=== PATIENT | male | born 1995 | race Caucasian/White ===

== ENCOUNTER 2016-11-06 16:15 | Emergency (ER) | payer MEDICAID, OTHER ==
[~2016-11-06] VITALS: Ht 170.2 cm; Wt 98.0 kg
[2016-11-06 16:15] VITALS: BP 115/70
== END 2016-11-06 16:39 | disposition home or self-care (01) ==
LOC: ER 16:18
DX: R05 Cough (principal); Z88.1 Allergy status to other antibiotic agents
CPT/HCPCS: 99283; A4606; Z7610

== ENCOUNTER 2017-09-06 15:59 | Emergency (ER) | payer MEDICAID, OTHER ==
[~2017-09-06] VITALS: Ht 170.2 cm; Wt 104.3 kg
[2017-09-06 16:35] VITALS: BP 112/63
== END 2017-09-06 17:16 | disposition home or self-care (01) ==
LOC: ER 16:02
DX: J11.1 Influenza due to unidentified influenza virus with other respiratory manifestations (principal); F10.10 Alcohol abuse, uncomplicated; Z88.1 Allergy status to other antibiotic agents
CPT/HCPCS: 99281; A4606; Z7610; Z7502

== ENCOUNTER 2017-10-11 08:02 | Emergency (ER) | payer OTHER ==
[~2017-10-11] VITALS: Ht 170.2 cm; Wt 97.5 kg
[2017-10-11 08:06] VITALS: BP 128/98
== END 2017-10-11 09:15 | disposition home or self-care (01) ==
LOC: ER 08:03
DX: R06.02 Shortness of breath (principal); F41.9 Anxiety disorder, unspecified; F10.10 Alcohol abuse, uncomplicated; Z88.1 Allergy status to other antibiotic agents
CPT/HCPCS: 71045; 99284; A4606; Z7610

== ENCOUNTER 2018-02-22 15:09 | Emergency (ER) | payer OTHER ==
[~2018-02-22] VITALS: Ht 165.1 cm; Wt 83.9 kg
[2018-02-22 15:27] VITALS: BP 122/57
[2018-02-22] MEDS ORDERED: ONDANSETRON 4 MG TAB.RAPDIS ONE (15:44)
[2018-02-22] MEDS ORDERED: ONDANSETRON 4 MG TAB.RAPDIS SL ONE (16:00)
== END 2018-02-22 15:50 | disposition home or self-care (01) ==
LOC: ER 15:12
DX: R11.2 Nausea with vomiting, unspecified (principal); R19.7 Diarrhea, unspecified; Z88.1 Allergy status to other antibiotic agents
CPT/HCPCS: 99283; A4606; Q0162; Z7610

== ENCOUNTER 2018-03-13 22:35 | Emergency (ER) | payer OTHER ==
[~2018-03-13] VITALS: Ht 172.7 cm; Wt 99.8 kg
[2018-03-13 22:39] VITALS: BP 142/89
== END 2018-03-13 23:04 | disposition home or self-care (01) ==
LOC: ER 22:39
DX: S39.82XA Other specified injuries of lower back, initial encounter (principal); Z88.1 Allergy status to other antibiotic agents; W14.XXXA Fall from tree, initial encounter; Y93.89 Activity, other specified; Y92.89 Other specified places as the place of occurrence of the external cause; Y99.8 Other external cause status
CPT/HCPCS: 99282; A4606; Z7610

== ENCOUNTER 2018-08-05 12:12 | Emergency (ER) | payer OTHER ==
[~2018-08-05] VITALS: Ht 167.6 cm; Wt 99.8 kg
--- NOTE | 2018-08-05 12:12 | NUR ---
BIB SELF, WITH C/O NAUSEA AND VOMITING X LAST NIGHT, ALSO C/O GENERALIZED BODYACHES. TO ER BED 7, VSS, AWAITING MD ROJAS
--- NOTE | 2018-08-05 12:45 | NUR ---
NOT ABLE TO PROVIDE URINE SPECIMEN AT THIS TIME
[2018-08-05] MEDS ORDERED: ONDANSETRON HCL/PF 4 MG/2 ML VIAL ONE (12:47)
[2018-08-05] MEDS ORDERED: ONDANSETRON HCL/PF 4 MG/2 ML VIAL IVP ONE (13:00)
[2018-08-05] MEDS ORDERED: IV NS 0.9% 1,000 ML BAG IV ONE ×2 (13:00→14:00)
[2018-08-05 13:11] LABS: BASOPHILS % (AUTO) 0.2 % (0.0-2.0); EOSINOPHILS % (AUTO) 0.6 % (0.0-6.0); HEMATOCRIT 49 % (39-51); HEMOGLOBIN 16.8 g/dL (13.5-17.5); LYMPHOCYTES # (AUTO) 0.4 /CMM (0.8-4.8); LYMPHOCYTES % (AUTO) 3.6 % (20.0-44.0); MEAN CORPUSCULAR HGB CONC 34 g/dl (31.0-36.0); MEAN CORPUSCULAR VOLUME 91 fL (80-96); MONOCYTES # (AUTO) 0.5 /CMM (0.1-1.30); MONOCYTES % (AUTO) 5.1 % (2.0-12.0); NEUTROPHILS # (AUTO) 9.4 /CMM (1.8-8.9); NEUTROPHILS % (AUTO) 90.5 % (43.0-81.0); PLATELET COUNT (AUTO) 224 /CMM (150-450); RED BLOOD CELL COUNT(AUTO) 5.44 MIL/uL (4.5-6.0); WHITE BLOOD COUNT (AUTO) 10.4 K/uL (4.3-11.0)
[2018-08-05 13:19] LABS: CALCIUM, SERUM 9.2 mg/dL (8.5-10.1); POTASSIUM 3.7 mmol/L (3.5-5.1)
[2018-08-05 13:25] LABS: ALBUMIN 4.6 g/dL (3.4-5.0); BILIRUBIN,DIRECT 0.2 mg/dL (0.0-0.2)
[2018-08-05 13:36] LABS: TOTAL PROTEIN, SERUM 8.4 g/dL (6.4-8.2)
--- NOTE | 2018-08-05 13:38 | NUR ---
PT ABLE TO DRINK WATER W/O VOMITING, AWARE
--- NOTE | 2018-08-05 14:45 | NUR ---
URINE SAMPLE SUBMITTED TO LAB
[2018-08-05 15:31] LABS: APPEARANCE,URINE CLEAR (CLEAR); BILIRUBIN,URINE NEGATIVE (NEGATIVE); BLOOD, URINE NEGATIVE Ery/uL (NEGATIVE); COLOR,URINE YELLOW (YELLOW); KETONES,URINE NEGATIVE (NEGATIVE); LEUKOCYTE ESTERASE ,URINE NEGATIVE (NEGATIVE); NITRITE, URINE NEGATIVE (NEGATIVE); PH,URINE 7.5 (5.0-8.0); PROTEIN,URINE NEGATIVE (NEGATIVE); UGLUCOSE NEGATIVE (NEGATIVE); UROBILINOGEN,URINE 0.2 EU/dL (0.2)
[2018-08-05 15:45] VITALS: BP 132/86
--- NOTE | 2018-08-05 15:45 | NUR ---
Patient discharged to home in stable condition. Written and verbal after care instructions given. Patient verbalizes understanding of instruction.IV removed. Catheter intact and site benign. Pressure and 4x4 applied to site. No bleeding noted.
== END 2018-08-05 15:47 | disposition home or self-care (01) ==
LOC: ER 12:13
DX: E86.0 Dehydration (principal); R11.2 Nausea with vomiting, unspecified; R19.7 Diarrhea, unspecified; Z88.1 Allergy status to other antibiotic agents
CPT/HCPCS: 36415; 80048; 80076; 81001; 83690; 85025; 96361; 96374; 99283; A4606; J2405; J7030 ×3; Z7610; 81000-TC

== ENCOUNTER 2018-12-08 13:27 | Emergency (ER) | payer OTHER ==
[~2018-12-08] VITALS: Ht 167.6 cm; Wt 65.8 kg
[2018-12-08] MEDS ORDERED: DIPHENHYDRAMINE HCL 12.5 MG/5 ML UDC PO ONE (14:00)
[2018-12-08 14:12] VITALS: BP 151/77
== END 2018-12-08 14:19 | disposition home or self-care (01) ==
LOC: ER 13:27
DX: T14.8XXA Other injury of unspecified body region, initial encounter (principal); Z88.1 Allergy status to other antibiotic agents; W57.XXXA Bitten or stung by nonvenomous insect and other nonvenomous arthropods, initial encounter; Y93.89 Activity, other specified; Y92.89 Other specified places as the place of occurrence of the external cause; Y99.8 Other external cause status
CPT/HCPCS: 99282; Q0163

== ENCOUNTER 2019-09-05 17:46 | Emergency (ER) | payer OTHER ==
[~2019-09-05] VITALS: Ht 170.2 cm; Wt 99.8 kg
--- NOTE | 2019-09-05 18:15 | NUR ---
BIB GF C/O ABDOMINAL PAIN, NAUSEA AND VOMITING X 3 DAYS. TO ER BED 11, HOOKED TO MONITOR, CHANGED TO HOSP GOWN, PROVIDED W WARM BLANKET, AOx4, BREATHING EVEN AND UNLABOREDM, AWAITING MD ROJAS.
--- NOTE | 2019-09-05 18:32 | NUR ---
DR ANDERSON AT BEDSIDE
[2019-09-05 18:43] LABS: BASOPHILS % (AUTO) 0.5 % (0.0-2.0); EOSINOPHILS % (AUTO) 2.5 % (0.0-6.0); HEMATOCRIT 53 % (39-51); HEMOGLOBIN 18.3 g/dL (13.5-17.5); LYMPHOCYTES # (AUTO) 1.7 /CMM (0.8-4.8); LYMPHOCYTES % (AUTO) 30.5 % (20.0-44.0); MEAN CORPUSCULAR HGB CONC 35 g/dl (31.0-36.0); MEAN CORPUSCULAR VOLUME 92 fL (80-96); NEUTROPHILS # (AUTO) 2.6 /CMM (1.8-8.9); NEUTROPHILS % (AUTO) 48.5 % (43.0-81.0); PLATELET COUNT (AUTO) 193 /CMM (150-450); RED BLOOD CELL COUNT(AUTO) 5.77 MIL/uL (4.5-6.0); WHITE BLOOD COUNT (AUTO) 5.4 K/uL (4.3-11.0)
[2019-09-05] MEDS ORDERED: ONDANSETRON HCL/PF 4 MG/2 ML VIAL ONE (18:49)
[2019-09-05] MEDS ORDERED: FAMOTIDINE/PF INJ 20 MG/2 ML VIAL IV ONE ×2 (18:49→19:00)
[2019-09-05 18:59] LABS: ALBUMIN 4.6 g/dL (3.4-5.0); BILIRUBIN,DIRECT 0.1 mg/dL (0.0-0.2); BILIRUBIN,TOTAL 0.7 mg/dL (0.2-1.0); CALCIUM, SERUM 9.9 mg/dL (8.5-10.1); CREATININE 1.2 mg/dL (0.6-1.3); POTASSIUM 3.8 mmol/L (3.5-5.1); TOTAL PROTEIN, SERUM 9.3 g/dL (6.4-8.2)
[2019-09-05] MEDS ORDERED: ONDANSETRON HCL/PF 4 MG/2 ML VIAL IVP ONE (19:00)
[2019-09-05] MEDS ORDERED: IV NS 0.9% 1,000 ML BAG IV ONE (19:00)
--- NOTE | 2019-09-05 19:34 | NUR ---
REPORT GIVEN TO KATHRYN AGUAYO FOR LOI
--- NOTE | 2019-09-05 19:35 | NUR ---
Patient discharged to home in stable condition. Written and verbal after care instructions given. Patient verbalizes understanding of instruction.IV removed. Catheter intact and site benign. Pressure and 4x4 applied to site. No bleeding noted.Pt ambulatory with a steady gait
[2019-09-05 19:36] VITALS: BP 124/67
[2019-09-05 21:48] LABS: BAND % (MANUAL) 3 % (0.0-5.0); EOSINOPHILS % (MANUAL) 4 % (0-4); LYMPHOCYTES % (MANUAL) 34 % (16-48); MONOCYTES % (MANUAL) 11 % (0-11.0); NEUTROPHILS % (MANUAL) 45 (42-76); REACTIVE LYMPHOCYTES 3 % (0-0)
== END 2019-09-05 19:36 | disposition home or self-care (01) ==
LOC: ER 17:46
DX: R11.2 Nausea with vomiting, unspecified (principal); R19.7 Diarrhea, unspecified; Z88.1 Allergy status to other antibiotic agents
CPT/HCPCS: 36415; 80048; 80076; 83690; 85025; 96361; 96374; 96375; 99283; J2405; J3490; J7030

== ENCOUNTER 2019-11-09 09:43 | Emergency (ER) | payer OTHER ==
[~2019-11-09] VITALS: Ht 167.6 cm; Wt 108.9 kg
--- NOTE | 2019-11-09 09:55 | NUR ---
DR DHILLON AT BEDSIDE FOR EVAL.
[2019-11-09 10:17] LABS: APPEARANCE,URINE Clear (CLEAR); BILIRUBIN,URINE SMALL (NEGATIVE); BLOOD, URINE Trace-lysed Ery/uL (NEGATIVE); COLOR,URINE Yellow (YELLOW); KETONES,URINE Negative (NEGATIVE); LEUKOCYTE ESTERASE ,URINE Negative (NEGATIVE); NITRITE, URINE Negative (NEGATIVE); PROTEIN,URINE 30 mg/dl (NEGATIVE); UGLUCOSE Negative (NEGATIVE); UROBILINOGEN,URINE 0.2 EU/dL (0.2)
[2019-11-09 10:32] LABS: BACTERIA,URINE None seen /HPF (None Seen); MUCUS,URINE Few /LPF (None Seen); SPERM,URINE Few /HPF (None Seen); SQUAMOUS EPITHELIAL CELL,UR None Seen /HPF (None Seen); URINE AMORPHOUS URATE Few /HPF (None Seen); WBC,URINE 0-2 /HPF (0-3)
--- NOTE | 2019-11-09 10:44 | NUR ---
PT DISCHARGE HOME STABLE CONDITION. PROVIDED W/ COPY OF LAB RESULT.
[2019-11-09 10:45] VITALS: BP 134/88
== END 2019-11-09 10:45 | disposition home or self-care (01) ==
LOC: ER 09:48
DX: N43.3 Hydrocele, unspecified (principal); Z88.1 Allergy status to other antibiotic agents
CPT/HCPCS: 76870-TC; 81000-TC

== ENCOUNTER 2019-11-13 09:13 | Emergency (ER) | payer OTHER ==
[~2019-11-13] VITALS: Ht 170.2 cm; Wt 102.1 kg
[2019-11-13 09:24] VITALS: BP 138/76
--- NOTE | 2019-11-13 10:34 | NUR ---
Patient discharged to home in stable condition. Written and verbal after care instructions given. Patient verbalizes understanding of instruction.
== END 2019-11-13 10:36 | disposition home or self-care (01) ==
LOC: ER 09:13
DX: R06.02 Shortness of breath (principal); Z88.6 Allergy status to analgesic agent

== ENCOUNTER 2020-02-18 08:42 | Emergency (ER) | payer SELFPAY ==
[~2020-02-18] VITALS: Ht 170.2 cm; Wt 102.1 kg
[2020-02-18 08:50] VITALS: BP 111/68
== END 2020-02-18 09:00 | disposition home or self-care (01) ==
LOC: ER 08:49
DX: H61.21 Impacted cerumen, right ear (principal); Z88.1 Allergy status to other antibiotic agents

== ENCOUNTER 2020-06-29 13:57 | Emergency (ER) | payer MEDICAID ==
[~2020-06-29] VITALS: Ht 167.6 cm; Wt 101.6 kg
--- NOTE | 2020-06-29 14:15 | NUR ---
PT CAME TO ER WITH C/O DIARRHEA SINCE YESTERDAY. WOKE UP W/ HEADACHE, NAUSEA AND VOMITING. NO FEVER NOTED. AWAITING FOR MD ROJAS.
--- NOTE | 2020-06-29 14:18 | NUR ---
SEEN AND EVALUATED BY MD WITH NEW ORDERS NOTED
[2020-06-29] MEDS ORDERED: IBUPROFEN 400 MG TABLET ONE (14:45)
[2020-06-29 14:46] LABS: BASOPHILS % (AUTO) 0.6 % (0.0-2.0); HEMATOCRIT 49 % (39-51); HEMOGLOBIN 16.6 g/dL (13.5-17.5); LYMPHOCYTES % (AUTO) 25.9 % (20.0-44.0); MEAN CORPUSCULAR HGB CONC 34 g/dl (31.0-36.0); MEAN CORPUSCULAR VOLUME 92 fL (80-96); MONOCYTES # (AUTO) 0.6 /CMM (0.1-1.30); NEUTROPHILS # (AUTO) 4.9 /CMM (1.8-8.9); NEUTROPHILS % (AUTO) 62.5 % (43.0-81.0); PLATELET COUNT (AUTO) 241 /CMM (150-450); RED BLOOD CELL COUNT(AUTO) 5.31 MIL/uL (4.5-6.0); WHITE BLOOD COUNT (AUTO) 7.8 K/uL (4.3-11.0)
[2020-06-29] MEDS ORDERED: IBUPROFEN 400 MG TABLET PO ONE (15:00)
[2020-06-29 15:12] LABS: ALANINE AMINOTRANSFERASE 162 U/L (12-78); ALBUMIN 4.5 g/dL (3.4-5.0); ALKALINE PHOSPHATASE 64 U/L (46-116); ASPARTATE AMINOTRANSFERASE 67 U/L (15-37); BILIRUBIN,DIRECT 0.1 mg/dL (0.0-0.2); BILIRUBIN,TOTAL 0.6 mg/dL (0.2-1.0); CALCIUM, SERUM 9.3 mg/dL (8.5-10.1); CARBON DIOXIDE 29 mmol/L (21-32); CHLORIDE 101 mmol/L (98-107); CREATININE 0.9 mg/dL (0.6-1.3); GLUCOSE 89 mg/dL (74-106); POTASSIUM 3.8 mmol/L (3.5-5.1); SODIUM SERUM 137 mmol/L (136-145); TOTAL PROTEIN, SERUM 8.4 g/dL (6.4-8.2); UREA NITROGEN, BLOOD 9 mg/dL (7-18)
--- NOTE | 2020-06-29 16:25 | NUR ---
Patient discharged to home in stable condition. Written and verbal after care instructions given. Patient verbalizes understanding of instruction.
[2020-06-29 16:26] VITALS: BP 124/67
== END 2020-06-29 16:26 | disposition home or self-care (01) ==
LOC: ER 13:59
DX: R51.9 Headache, unspecified (principal); R19.7 Diarrhea, unspecified; Z88.1 Allergy status to other antibiotic agents
CPT/HCPCS: 36415; 71045-TC; 80048-TC; 80076-TC; 84484-TC; 85025-TC